=== PATIENT | female | born 1980 | race African-American/Black ===

== ENCOUNTER 2019-10-26 15:25 | Emergency (ER) | payer BC ==
[~2019-10-26] VITALS: Ht 175.3 cm; Wt 83.9 kg
--- NOTE | 2019-10-26 16:02 | Emergency Room Report ---
History of Present Illness General Chief Complaint: Flu Like Symptoms Source: Patient Present Illness HPI 39-year-old female presents to the emergency department complaining of 6 out of 10 severity body aches, headaches, fevers, chills, severe weakness and fatigue with a persistent cough that is nonproductive x1 week. Patient states that she is been taking OTC medications and has had her friends nursing her at home she states her symptoms have improved slightly. She denied having a sudden onset of her HALL. Patient also reports that initially she had photophobia which resolved on its own. She denies neck pain/stiffness. She denies recent travel she denies ill contacts. 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 She denies nausea, vomiting, abdominal pain or tenderness. No other aggravating or relieving factors at this time. Allergies: Coded Allergies: AMOXICILLIN (Verified Allergy, Unknown, 10/26/19) Patient History Past Medical History: see triage record Past Surgical History: none Pertinent Family History: none Last Menstrual Period: 10/13/19 Now: No Reviewed Nursing Documentation: PMH: Agreed; PSxH: Agreed Nursing Documentation-PMH Past Medical History: No Stated History Review of Systems All Other Systems: negative except mentioned in HPI Physical Exam Vital Signs Date Time Temp Pulse Resp B/P (MAP) Pulse Ox O2 Delivery O2 Flow Rate FiO2 10/26/19 15:36 98.8 110 16 107/68 (81) 98 Room Air Sp02 EP Interpretation: reviewed, normal General Appearance: no apparent distress, alert, GCS 15, non-toxic Head: normocephalic, atraumatic Eyes: bilateral eye normal inspection, bilateral eye PERRL, bilateral eye other - no photophobia ENT: hearing grossly normal, normal pharynx, normal voice, TMs + canals normal , uvula midline Neck: full range of motion Respiratory: chest non-tender, lungs clear, speaking full sentences, wheezing Cardiovascular #1: regular rate, rhythm, no edema, tachycardia Gastrointestinal: non tender, soft Musculoskeletal: back normal, normal range of motion, gait/station normal, non- tender Neurologic: alert, motor strength/tone normal, oriented x3, sensory intact, responsive, speech normal Psychiatric: judgement/insight normal Skin: normal color, normal inspection Lymphatic: no adenopathy Medical Decision Making PA Attestation Dr. Vu is my supervising Physician whom patient management has been discussed with. Diagnostic Impression: Primary Impression: Acute viral syndrome ER Course 39-year-old female presents to the emergency department complaining of 6 out of 10 severity body aches, headaches, fevers, chills, severe weakness and fatigue with a persistent cough that is nonproductive x1 week. Patient states that she is been taking OTC medications and has had her friends nursing her at home she states her symptoms have improved slightly. She denied having a sudden onset of her HALL. Patient also reports that initially she had photophobia which resolved on its own. She denies neck pain/stiffness. She denies recent travel she denies ill contacts. 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 She denies nausea, vomiting, abdominal pain or tenderness. No other aggravating or relieving factors at this time. Ddx considered but are not limited to URI, pneumonia, PE, strep pharyngitis, meningitis. Vital signs: Pt. is afebrile but tachycardic at 110. The remaining VS are WNL. H&PE are most consistent with URI- no meningeal signs, oropharynx is not involved, no evidence of bacterial infection at this time. ORDERS: -CXR: WNL ED INTERVENTIONS: -Albuterol nebulized DISCHARGE: At this time pt. is stable for d/c to home. Will provide printed patient care instructions, and any necessary prescriptions. Care plan and follow up instructions have been discussed with the patient prior to discharge. Chest X-Ray Diagnostic Results Chest X-Ray Diagnostic Results : Chest X-Ray Ordered: Yes # of Views/Limited/Complete: 1 View Indication: Shortness of Breath EP Interpretation: Yes PERRY Xray: Interpretation reviewed, by supervising MD, and agrees with findings. Interpretation: no consolidation, no effusion, no pneumothorax, no acute cardiopulmonary disease Impression: No acute disease Electronically Signed by: Fransisca Loyd PA-C Last Vital Signs Date Time Temp Pulse Resp B/P (MAP) Pulse Ox O2 Delivery O2 Flow Rate FiO2 10/26/19 15:36 98.8 110 16 107/68 (81) 98 Room Air Disposition: HOME, SELF-CARE Condition: Stable Scripts Benzonatate* (TESSALON PERLE*) 100 Mg Capsule 100 MG ORAL THREE TIMES A DAY, #30 PERLE Prov: Fransisca Loyd 10/26/19 Acetaminophen* (TYLENOL EXTRA STRENGTH*) 500 Mg Tablet 500 MG ORAL Q6H PRN for Mild Pain/Temp > 100.5, #30 TAB 0 Refills Prov: Fransisca Loyd 10/26/19 Codeine/Promethazine Hcl* (PROMETHAZINE-CODEINE SYRUP*) 118 Ml Syrup 5 ML ORAL Q6H PRN for For Cough, #120 ML 0 Refills Prov: Fransisca Loyd 10/26/19 Albuterol Sulfate* (ALBUTEROL SULFATE MDI*) 8.5 Gm Hfa.aer.ad 2 PUFF INH Q6H, #1 INH 0 Refills Prov: Fransisca Loyd 10/26/19 Referrals: NOT CHOSEN IPA/,REFERRING (PCP) Patient Instructions: Influenza, Adult, [id number] Additional Instructions: Take medications as directed. Follow up with a Primary Care Provider in 3-5 days, even if your symptoms have resolved. --Please review list of primary care clinics, if you do not already have a primary care provider Return sooner to ED if new symptoms occur, or current symptoms become worse. Do not drink alcohol, drive, or operate heavy machinery while taking Cough Syrup as this may cause drowsiness. - Please note that this Emergency Department Report was dictated using [employer] languages professor technology software, occasionally this can lead to erroneous entry secondary to interpretation by the dictation equipment. Fransisca Loyd Oct 26, 2019 16:02
[2019-10-26 16:04] VITALS: BP 107/68
--- NOTE | 2019-10-26 16:07 | NUR ---
ED Nurse Note: Patient walked in to ER c/o flu like symptoms, chills, headache, cough. patient AAO x4, VSS at this time.
[2019-10-26] MEDS ORDERED: Albuterol ud Inhalation HHN ONE (16:15)
[2019-10-26] MEDS ORDERED: ALBUTEROL SULF8.5 GM INH (17:34)
[2019-10-26] MEDS ORDERED: PROMETHAZINE-C118 M1 ORAL (17:34)
[2019-10-26] MEDS ORDERED: TESSALON PERLE100 MG ORAL (17:34)
[2019-10-26] MEDS ORDERED: TYLENOL EXTRA500 MG ORAL (17:34)
[2019-10-26 17:46] VITALS: BP 107/68
--- NOTE | 2019-10-26 17:46 | NUR ---
ED Nurse Note: Pt cleared by health care Provider for discharge. DC instructions/prescription was given and explained to pt and verbalized understanding of teachings. All medical deviecs such as ID band removed. Pt is AAO x4, ambulatory and left with all personal belongings.
--- NOTE | 2019-10-27 14:18 | Diagnostic Imaging Report ---
Indication: Dyspnea Comparison: None A single view chest radiograph was obtained. Findings: Cardiomediastinal appearance is within normal limits for age. The lungs are clear. Pulmonary vascularity is appropriate. The diaphragmatic contour is smooth and costophrenic angles are sharp. No pleural effusions are identified. The bones are unremarkable. Impression: No acute findings
== END 2019-10-26 17:47 | disposition home or self-care (01) ==
LOC: EMR 15:50
DX: B34.9 Viral infection, unspecified (principal); Z88.0 Allergy status to penicillin
CPT/HCPCS: 71045; 99284